=== PATIENT | female | born 1995 | race Caucasian/White ===

== ENCOUNTER 2022-04-30 12:42 | Emergency (ER) | payer MEDICARE ==
[~2022-04-30] VITALS: Ht 165.1 cm; Wt 76.9 kg
[2022-04-30] MEDS ORDERED: IBUPROFEN 800 MG TAB PO ONE (14:35)
[2022-04-30] MEDS ORDERED: ACETAMINOPHEN 325 MG TAB PO ONE (14:35)
[2022-04-30] MEDS ORDERED: CIPRODEX OTIC SUSP 7.5ML AD ONE (16:50)
[2022-04-30] MEDS ORDERED: KETOROLAC 30 MG/ML 1ML VIAL IM ONE (17:15)
[2022-04-30] MEDS ORDERED: CIPR7.5D5 OTIC (17:20)
[2022-04-30] MEDS ORDERED: KETO10TAB PO (17:21)
[2022-04-30 17:55] VITALS: BP 104/67
== END 2022-04-30 17:57 | disposition home or self-care (01) ==
LOC: M ED 12:42
DX: H66.91 Otitis media, unspecified, right ear (principal); Z88.8 Allergy status to other drugs, medicaments and biological substances; Z87.19 Personal history of other diseases of the digestive system
CPT/HCPCS: 96372; 99283; J1885

== ENCOUNTER 2023-06-05 05:25 | Emergency (ER) | payer MEDICARE ==
[~2023-06-05] VITALS: Ht 165.1 cm; Wt 72.7 kg
[~2023-06-05 05:25] MED LIST: CIPR7.5D5 OTIC; KETO10TAB PO
[2023-06-05 06:38] LABS: BASO # 0.1 10^3/uL (0.0-0.2); BASO % 0.5 % (0.0-1.0); EOS # 0.1 10^3/uL (0.0-0.5); EOS % 1.2 % (0.0-3.0); HEMATOCRIT 38.5 % (36.0-47.0); HEMOGLOBIN 12.5 g/dl (12.0-15.5); LYMPH # 4.9 10^3/uL (1.5-5.0); LYMPH % 45.7 % (24.0-44.0); MEAN CORPUSCULAR HEMOGLOBIN 27.9 pg (27.0-33.0); MEAN CORPUSCULAR HGB CONC 32.5 g/dl (32.0-36.5); MEAN CORPUSCULAR VOLUME 85.9 fl (80.0-96.0); MONO # 0.6 10^3/uL (0.0-0.8); MONO % 5.1 % (2.0-8.0); NEUTROPHILS # 5.1 10^3/uL (1.5-8.5); PLATELET COUNT, AUTOMATED 321 10^3/uL (150-450); RED BLOOD COUNT 4.48 10^6/uL (4.00-5.40); WHITE BLOOD COUNT 10.8 10^3/uL (4.0-10.0)
[2023-06-05 06:55] LABS: LIPASE 29 U/L (12-53)
[2023-06-05 06:57] LABS: ALBUMIN 3.6 G/DL (3.2-5.2); ALKALINE PHOSPHATASE 80 U/L (46-116); ALT/SGPT 17 U/L (7.0-40); AST/SGOT < 8 U/L (<34); BILIRUBIN,DIRECT 0.1 MG/DL (<0.4); BILIRUBIN,TOTAL 0.4 MG/DL (0.3-1.2); TOTAL PROTEIN 6.8 G/DL (5.7-8.2)
[2023-06-05 07:04] LABS: HCG, SERUM QUALITATIVE NEGATIVE (NEGATIVE)
[2023-06-05] MEDS ORDERED: NS 1,000 ML IV ONE (09:40)
[2023-06-05] MEDS ORDERED: KETOROLAC 30 MG/ML 1ML VIAL IV ONE (09:45)
[2023-06-05] MEDS ORDERED: ONDANSETRON 4MG 2ML VIAL IV ONE (09:45)
[2023-06-05] MEDS ORDERED: ISOVUE-370 76% 100ML VIAL As Ordered ONE (10:23)
[2023-06-05] MEDS ORDERED: MACR100C43 PO ×2 (11:23→11:36)
[2023-06-05 11:31] VITALS: BP 118/71; TEMP 96.5; O2SAT 97
== END 2023-06-05 11:36 | disposition home or self-care (01) ==
LOC: EDBD 05:25 → M ED 05:25
DX: N30.00 Acute cystitis without hematuria (principal); K57.30 Diverticulosis of large intestine without perforation or abscess without bleeding; G40.909 Epilepsy, unspecified, not intractable, without status epilepticus; Z79.899 Other long term (current) drug therapy; Z88.8 Allergy status to other drugs, medicaments and biological substances
CPT/HCPCS: 74177; 80047; 80076; 81001; 83690; 84703; 85025; 87088; 87186; 93005; 96361; 96374; 96375; 99284; J1885; J2405; Q9967

== ENCOUNTER 2023-07-08 21:47 | Emergency (ER) | payer OTHER, MEDICARE ==
[~2023-07-08] VITALS: Ht 165.1 cm; Wt 88.8 kg
[~2023-07-08 21:47] MED LIST changes: +MACR100C43 PO
[2023-07-08 21:48] VITALS: BP 124/78; TEMP 98.5; O2SAT 99
[2023-07-09] MEDS ORDERED: ALBUTEROL SULFATE 2.5MG/0.5ML INH NEB SOLN NEB ONE (00:35)
[2023-07-09] MEDS ORDERED: NEOSPORIN OINT 0.9 GM PKT TOP ONE (00:35)
[2023-07-09 01:22] LABS: RSV AMPLIFICATION NEGATIVE (NEGATIVE)
[2023-07-09] MEDS ORDERED: VENTAER INH (02:21)
== END 2023-07-09 02:33 | disposition home or self-care (01) ==
LOC: M ED 21:47
DX: T23.101A Burn of first degree of right hand, unspecified site, initial encounter (principal); Y99.0 Civilian activity done for income or pay; R05.9 Cough, unspecified; E66.9 Obesity, unspecified; Z88.8 Allergy status to other drugs, medicaments and biological substances; Z79.51 Long term (current) use of inhaled steroids

== ENCOUNTER 2023-07-15 06:30 | Emergency (ER) | payer MEDICARE, OTHER ==
[~2023-07-15] VITALS: Ht 165.1 cm; Wt 87.6 kg
[~2023-07-15 06:30] MED LIST changes: +VENTAER INH
[2023-07-15] MEDS ORDERED: NS 1,000 ML IV ONE (07:40)
[2023-07-15] MEDS ORDERED: ACETAMINOPHEN 500 MG TAB PO ONE (07:40)
[2023-07-15] MEDS ORDERED: ONDANSETRON 4MG 2ML VIAL IV ONE (07:40)
[2023-07-15 09:11] LABS: BASO % 0.3 % (0.0-1.0); EOS # 0.1 10^3/uL (0.0-0.5); EOS % 0.5 % (0.0-3.0); HEMATOCRIT 38.1 % (36.0-47.0); HEMOGLOBIN 12.5 g/dl (12.0-15.5); LYMPH # 1.8 10^3/uL (1.5-5.0); LYMPH % 14.1 % (24.0-44.0); MEAN CORPUSCULAR HEMOGLOBIN 27.6 pg (27.0-33.0); MEAN CORPUSCULAR HGB CONC 32.8 g/dl (32.0-36.5); MEAN CORPUSCULAR VOLUME 84.1 fl (80.0-96.0); MONO # 0.7 10^3/uL (0.0-0.8); MONO % 5.1 % (2.0-8.0); NEUTROPHILS # 10.2 10^3/uL (1.5-8.5); NEUTROPHILS % 79.6 % (36.0-66.0); PLATELET COUNT, AUTOMATED 286 10^3/uL (150-450); RED BLOOD COUNT 4.53 10^6/uL (4.00-5.40); WHITE BLOOD COUNT 12.8 10^3/uL (4.0-10.0)
[2023-07-15 09:30] LABS: LIPASE 33 U/L (12-53)
[2023-07-15 09:32] LABS: ALBUMIN 3.6 G/DL (3.2-5.2); ALKALINE PHOSPHATASE 79 U/L (46-116); ALT/SGPT 19 U/L (7.0-40); AST/SGOT < 8 U/L (<34); BILIRUBIN,DIRECT 0.1 MG/DL (<0.4); BILIRUBIN,TOTAL 0.4 MG/DL (0.3-1.2); BLOOD UREA NITROGEN 13 MG/DL (9-23); CALCIUM LEVEL 8.8 MG/DL (8.5-10.1); CARBON DIOXIDE LEVEL 24 MMOL/L (20-31); CHLORIDE LEVEL 101 MMOL/L (98-107); CREATININE FOR GFR 0.69 MG/DL (0.55-1.30); GLOMERULAR FILTRATION RATE > 60.0 (>60); GLUCOSE, FASTING 108 MG/DL (60-100); SODIUM LEVEL 136 MMOL/L (136-145); TOTAL PROTEIN 6.9 G/DL (5.7-8.2)
[2023-07-15 09:41] LABS: HCG, SERUM QUALITATIVE NEGATIVE (NEGATIVE)
[2023-07-15] MEDS ORDERED: ISOVUE-370 76% 100ML VIAL As Ordered ONE (10:06)
[2023-07-15 11:12] VITALS: BP 119/64; TEMP 98.1; O2SAT 99
[2023-07-15 12:06] LABS: RSV AMPLIFICATION NEGATIVE (NEGATIVE)
[2023-07-15] MEDS ORDERED: CIPR7.5D5 AD (12:23)
== END 2023-07-15 13:12 | disposition home or self-care (01) ==
LOC: M ED 06:30
DX: H60.91 Unspecified otitis externa, right ear (principal); K59.00 Constipation, unspecified; F41.9 Anxiety disorder, unspecified; F32.A Depression, unspecified; G40.909 Epilepsy, unspecified, not intractable, without status epilepticus; Z88.8 Allergy status to other drugs, medicaments and biological substances; Z91.048 Other nonmedicinal substance allergy status; Z79.52 Long term (current) use of systemic steroids; Z79.2 Long term (current) use of antibiotics
CPT/HCPCS: 74177; 80048; 80076; 81001; 83690; 84703; 85025; 87631; 96361; 96374; 99284; J2405; Q9967

== ENCOUNTER 2023-09-08 00:14 | Emergency (ER) | payer MEDICARE, MEDICAID ==
[~2023-09-08] VITALS: Ht 165.1 cm; Wt 84.6 kg
[~2023-09-08 00:14] MED LIST changes: +CIPR7.5D5 AD
[2023-09-08] MEDS ORDERED: KETOROLAC 30 MG/ML 1ML VIAL IV ONE (07:10)
[2023-09-08] MEDS ORDERED: diphenhydrAMINE 50MG/ML VIAL IV ONE (07:10)
[2023-09-08] MEDS ORDERED: METOCLOPRAMIDE INJ 10MG/2ML VIAL IV ONE (07:10)
[2023-09-08] MEDS ORDERED: NS 1,000 ML IV ONE (07:10)
[2023-09-08] MEDS ORDERED: ACETAMINOPHEN *IV* 1,000 MG in IV 1 EA IV ONE (08:45)
[2023-09-08 10:01] VITALS: BP 135/62; TEMP 98; O2SAT 100
== END 2023-09-08 10:42 | disposition home or self-care (01) ==
LOC: M ED 00:14
DX: G43.909 Migraine, unspecified, not intractable, without status migrainosus (principal); Z88.8 Allergy status to other drugs, medicaments and biological substances
CPT/HCPCS: 84702; 96361; 96365; 96375; 99284; J0131; J1100; J1200; J1885; J2765

== ENCOUNTER 2023-09-22 14:52 | Emergency (ER) | payer MEDICARE, MEDICAID ==
[~2023-09-22] VITALS: Ht 165.1 cm; Wt 81.6 kg
[2023-09-22 16:28] LABS: BASO % 0.5 % (0.0-1.0); EOS # 0.1 10^3/uL (0.0-0.5); EOS % 1.5 % (0.0-3.0); HEMATOCRIT 37.9 % (36.0-47.0); HEMOGLOBIN 12.5 g/dl (12.0-15.5); LYMPH # 2.8 10^3/uL (1.5-5.0); LYMPH % 35.6 % (24.0-44.0); MEAN CORPUSCULAR HEMOGLOBIN 28.5 pg (27.0-33.0); MEAN CORPUSCULAR VOLUME 86.5 fl (80.0-96.0); MONO # 0.5 10^3/uL (0.0-0.8); MONO % 6.6 % (2.0-8.0); NEUTROPHILS # 4.4 10^3/uL (1.5-8.5); NEUTROPHILS % 55.4 % (36.0-66.0); PLATELET COUNT, AUTOMATED 243 10^3/uL (150-450); RED BLOOD COUNT 4.38 10^6/uL (4.00-5.40); WHITE BLOOD COUNT 7.9 10^3/uL (4.0-10.0)
[2023-09-22 16:51] LABS: LIPASE 27 U/L (12-53)
[2023-09-22 16:52] LABS: HCG, SERUM QUALITATIVE NEGATIVE (NEGATIVE)
[2023-09-22 16:53] LABS: ALBUMIN 3.6 G/DL (3.2-5.2); ALKALINE PHOSPHATASE 66 U/L (46-116); ALT/SGPT 22 U/L (7.0-40); AST/SGOT 11 U/L (<34); BILIRUBIN,DIRECT 0.2 MG/DL (<0.4); BILIRUBIN,TOTAL 0.7 MG/DL (0.3-1.2); BLOOD UREA NITROGEN 13 MG/DL (9-23); CALCIUM LEVEL 8.6 MG/DL (8.5-10.1); CARBON DIOXIDE LEVEL 25 MMOL/L (20-31); CHLORIDE LEVEL 103 MMOL/L (98-107); GLOMERULAR FILTRATION RATE > 60.0 (>60); GLUCOSE, FASTING 87 MG/DL (60-100); POTASSIUM SERUM 3.7 MMOL/L (3.5-5.1); SODIUM LEVEL 139 MMOL/L (136-145); TOTAL PROTEIN 6.4 G/DL (5.7-8.2)
[2023-09-22] MEDS ORDERED: KETOROLAC 30 MG/ML 1ML VIAL IV ONE (16:55)
[2023-09-22] MEDS ORDERED: ISOVUE-370 76% 100ML VIAL As Ordered ONE (17:58)
[2023-09-22] MEDS ORDERED: metroNIDAZOLE (FLAGYL) 500MG TABLET PO ONE (19:30)
[2023-09-22] MEDS ORDERED: AUGMENTIN 875 MG TAB PO ONE (19:30)
[2023-09-22] MEDS ORDERED: AMOX875T PO (19:53)
[2023-09-22] MEDS ORDERED: METR-265 PO (19:53)
[2023-09-22 20:15] VITALS: BP 123/74
[2023-09-22 20:22] VITALS: TEMP 98.8; O2SAT 97
[2023-09-22] MEDS ORDERED: traMADol 50 MG TAB PO ONE (20:25)
[2023-09-22] MEDS ORDERED: TRAM50TA2 PO (20:26)
[2023-09-22] MEDS ORDERED: IBUP-1022 PO (20:26)
[2023-09-25] MEDS ORDERED: ONDA4TAB6 PO (22:23)
== END 2023-09-22 20:30 | disposition home or self-care (01) ==
LOC: M ED 14:52 → EDBD 14:52 → M ED 20:30
DX: I88.0 Nonspecific mesenteric lymphadenitis (principal); Z88.8 Allergy status to other drugs, medicaments and biological substances
CPT/HCPCS: 74177; 80048; 80076; 83690; 84703; 85025; 96374; 99285; J1885; Q9967

== ENCOUNTER → 2023-10-15 | Outpatient (CLI) | payer MEDICARE, MEDICAID ==
[~2023-10-15] MED LIST changes: +AMOX875T PO; +IBUP-1022 PO; +METR-265 PO; +ONDA4TAB6 PO; +PROA1AER2 IN; +TRAM50TA2 PO
== END ==
LOC: M EKG 10:26
PROVIDERS: ATTEND Surgery
DX: R10.31 Right lower quadrant pain (principal); I45.19 Other right bundle-branch block

== ENCOUNTER 2023-10-16 10:24 | Day surgery (SDC) | payer MEDICARE, MEDICAID ==
[~2023-10-16] VITALS: Ht 165.1 cm; Wt 80.2 kg
[~2023-10-16 10:24] MED LIST changes: +CelecoXIB 400 MG CAP PO ONE; +LR 1,000 ML IV SCH; +ceFAZolin SOD 2 GM in IV 1 EA IV ONE; +metroNIDAZOLE 500 MG in IV 1 EA IV ONE
[2023-10-16] MEDS ORDERED: LIDOCAINE 2% INJ 100 MG/5 ML SYRINGE As Ordered ONE (11:55)
[2023-10-16] MEDS ORDERED: ACETAMINOPHEN 1000MG 100ML IV BAG As Ordered ONE (11:55)
[2023-10-16] MEDS ORDERED: ONDANSETRON 4MG 2ML VIAL As Ordered ONE (11:55)
[2023-10-16] MEDS ORDERED: propofoL 200 MG/20 ML VIAL As Ordered ONE (11:55)
[2023-10-16] MEDS ORDERED: KETOROLAC 60MG 2ML VIAL As Ordered ONE (11:55)
[2023-10-16] MEDS ORDERED: fentaNYL 100 MCG/2 ML INJECTION As Ordered ONE (12:01)
[2023-10-16] MEDS ORDERED: MIDAZOLAM INJ 2MG/2ML VIAL As Ordered ONE (12:01)
[2023-10-16] MEDS ORDERED: SUGAMMADEX SODIUM 500 MG/5 ML VIAL (BRIDION) As Ordered ONE (12:02)
[2023-10-16] MEDS ORDERED: ROCURONIUM BROMIDE 50MG/5ML VIAL As Ordered ONE (12:02)
[2023-10-16] MEDS ORDERED: LIDOCAINE 2% 100MG/5ML SDV (FOR ANES.) As Ordered ONE (12:05)
[2023-10-16] MEDS ORDERED: GLYCOPYRROLATE INJ 0.2 MG/ML 2 ML VIAL As Ordered ONE (12:50)
[2023-10-16] MEDS ORDERED: oxyCODONE 5MG TAB PO PRN (13:15)
[2023-10-16] MEDS ORDERED: ONDANSETRON 4MG 2ML VIAL IV PRN (13:15)
[2023-10-16] MEDS ORDERED: HYDROMORPHONE HCL 0.5 MG/ 0.5 ML SYRINGE IV PRN (13:15)
[2023-10-16] MEDS ORDERED: LR 1,000 ML IV SCH (13:15)
[2023-10-16] MEDS ORDERED: fentaNYL 100 MCG/2 ML INJECTION IV PRN (13:15)
[2023-10-16] MEDS ORDERED: NORCO, ANEXSIA 5/325MG TABLET (HYDROcodone/ACETAMINOPHEN) PO PRN ×2 (14:20)
[2023-10-16 15:30] VITALS: BP 116/60; TEMP 97.5; O2SAT 98
[2023-10-16] MEDS ORDERED: KETOROLAC 30 MG/ML 1ML VIAL IV SCH (19:00)
== END 2023-10-16 15:35 | disposition home or self-care (01) ==
LOC: M SDC 10:24
PROVIDERS: ATTEND Surgery
DX: K35.80 Unspecified acute appendicitis (principal); Z86.69 Personal history of other diseases of the nervous system and sense organs; Z87.09 Personal history of other diseases of the respiratory system; Z88.8 Allergy status to other drugs, medicaments and biological substances
CPT/HCPCS: 44970; 81025; 88304; J0131; J0665; J1100; J1836; J1885; J2250; J2405; J3010

== ENCOUNTER 2023-10-20 13:20 | Emergency (ER) | payer MEDICARE, MEDICAID ==
[~2023-10-20] VITALS: Ht 165.1 cm; Wt 80.5 kg
[~2023-10-20 13:20] MED LIST changes: -CelecoXIB 400 MG CAP PO ONE; -LR 1,000 ML IV SCH; -ceFAZolin SOD 2 GM in IV 1 EA IV ONE; -metroNIDAZOLE 500 MG in IV 1 EA IV ONE
[2023-10-20 14:45] LABS: LIPASE 26 U/L (12-53)
[2023-10-20 14:47] LABS: ALKALINE PHOSPHATASE 81 U/L (46-116); ALT/SGPT 20 U/L (7.0-40); AST/SGOT 13 U/L (<34); BILIRUBIN,DIRECT 0.2 MG/DL (<0.4); BILIRUBIN,TOTAL 0.8 MG/DL (0.3-1.2); TOTAL PROTEIN 7.2 G/DL (5.7-8.2)
[2023-10-20 14:50] LABS: HCG, SERUM QUALITATIVE NEGATIVE (NEGATIVE)
[2023-10-20] MEDS ORDERED: ISOVUE-370 76% 100ML VIAL As Ordered ONE (14:59)
[2023-10-20 15:01] LABS: RSV AMPLIFICATION NEGATIVE (NEGATIVE)
[2023-10-20 15:05] LABS: BASO % 0.2 % (0.0-1.0); EOS # 0.1 10^3/uL (0.0-0.5); EOS % 1.1 % (0.0-3.0); HEMOGLOBIN 14.2 g/dl (12.0-15.5); LYMPH # 3.2 10^3/uL (1.5-5.0); LYMPH % 25.4 % (24.0-44.0); MEAN CORPUSCULAR HEMOGLOBIN 28.5 pg (27.0-33.0); MEAN CORPUSCULAR HGB CONC 33.8 g/dl (32.0-36.5); MEAN CORPUSCULAR VOLUME 84.3 fl (80.0-96.0); MONO # 0.6 10^3/uL (0.0-0.8); MONO % 4.8 % (2.0-8.0); NEUTROPHILS # 8.5 10^3/uL (1.5-8.5); NEUTROPHILS % 68.1 % (36.0-66.0); RED BLOOD COUNT 4.98 10^6/uL (4.00-5.40); WHITE BLOOD COUNT 12.5 10^3/uL (4.0-10.0)
[2023-10-20 16:01] LABS: PLATELET COUNT, AUTOMATED 243 10^3/uL (150-450)
[2023-10-20] MEDS ORDERED: PERCOCET 5MG/325MG TAB PO ONE (16:35)
[2023-10-20 18:15] VITALS: BP 121/70; TEMP 96.6; O2SAT 97
[2023-10-20] MEDS ORDERED: CEFD1CAP9 PO (18:15)
[2023-10-20] MEDS ORDERED: PERC5TAB12 PO (18:15)
[2023-10-20] MEDS ORDERED: CEFDINIR 300 MG CAP (OMNICEF) PO ONE (18:15)
== END 2023-10-20 18:30 | disposition home or self-care (01) ==
LOC: M ED 13:20 → EDBD 13:20 → M ED 18:30
DX: N39.0 Urinary tract infection, site not specified (principal); G89.18 Other acute postprocedural pain; Z88.8 Allergy status to other drugs, medicaments and biological substances; Z79.2 Long term (current) use of antibiotics; Z79.52 Long term (current) use of systemic steroids
CPT/HCPCS: 36415; 74177; 80047; 80076; 81001; 83605; 83690; 84703; 85025; 87040; 87086; 87631; 93041; 99285; Q9967

== ENCOUNTER 2023-10-27 16:12 | Emergency (ER) | payer MEDICARE, MEDICAID ==
[~2023-10-27] VITALS: Ht 165.1 cm; Wt 78.0 kg
[~2023-10-27 16:12] MED LIST changes: +CEFD1CAP9 PO; +PERC5TAB12 PO
[2023-10-27] MEDS ORDERED: HYDR-4571 (16:38)
[2023-10-27] MEDS ORDERED: ONDA4TAB6 (16:38)
[2023-10-27 17:51] LABS: BASO % 0.2 % (0.0-1.0); EOS # 0.1 10^3/uL (0.0-0.5); EOS % 0.8 % (0.0-3.0); HEMATOCRIT 46.4 % (36.0-47.0); HEMOGLOBIN 15.4 g/dl (12.0-15.5); LYMPH % 9.4 % (24.0-44.0); MEAN CORPUSCULAR HEMOGLOBIN 27.8 pg (27.0-33.0); MEAN CORPUSCULAR HGB CONC 33.2 g/dl (32.0-36.5); MEAN CORPUSCULAR VOLUME 83.8 fl (80.0-96.0); MONO # 0.5 10^3/uL (0.0-0.8); MONO % 4.9 % (2.0-8.0); NEUTROPHILS # 8.7 10^3/uL (1.5-8.5); NEUTROPHILS % 84.2 % (36.0-66.0); PLATELET COUNT, AUTOMATED 263 10^3/uL (150-450); RED BLOOD COUNT 5.54 10^6/uL (4.00-5.40); WHITE BLOOD COUNT 10.4 10^3/uL (4.0-10.0)
[2023-10-27 18:04] LABS: LIPASE 28 U/L (12-53)
[2023-10-27 18:06] LABS: ALBUMIN 3.9 G/DL (3.2-5.2); ALKALINE PHOSPHATASE 95 U/L (46-116); ALT/SGPT 16 U/L (7.0-40); AST/SGOT 14 U/L (<34); BILIRUBIN,DIRECT 0.2 MG/DL (<0.4); BILIRUBIN,TOTAL 0.7 MG/DL (0.3-1.2); BLOOD UREA NITROGEN 16 MG/DL (9-23); CALCIUM LEVEL 8.5 MG/DL (8.5-10.1); CARBON DIOXIDE LEVEL 20 MMOL/L (20-31); CHLORIDE LEVEL 107 MMOL/L (98-107); CREATININE FOR GFR 0.67 MG/DL (0.55-1.30); GLOMERULAR FILTRATION RATE > 60.0 (>60); GLUCOSE, FASTING 98 MG/DL (60-100); POTASSIUM SERUM 3.4 MMOL/L (3.5-5.1); SODIUM LEVEL 138 MMOL/L (136-145); TOTAL PROTEIN 7.4 G/DL (5.7-8.2)
[2023-10-27 18:07] LABS: HCG, SERUM QUALITATIVE NEGATIVE (NEGATIVE)
[2023-10-27] MEDS ORDERED: METOCLOPRAMIDE INJ 10MG/2ML VIAL IV ONE (21:15)
[2023-10-27] MEDS ORDERED: ACETAMINOPHEN *IV* 1,000 MG in IV 1 EA IV ONE (21:15)
[2023-10-27] MEDS ORDERED: NS 1,000 ML IV ONE (21:15)
[2023-10-27] MEDS ORDERED: ISOVUE-370 76% 100ML VIAL As Ordered ONE (21:18)
[2023-10-27 23:41] VITALS: BP 118/62; TEMP 98.9; O2SAT 97
[2023-10-28] MEDS ORDERED: PROM12.56 PO (00:43)
[2023-10-28 01:39] LABS: RSV AMPLIFICATION NEGATIVE (NEGATIVE)
== END 2023-10-28 01:23 | disposition home or self-care (01) ==
LOC: EDBD 16:12 → M ED 16:12
DX: R11.2 Nausea with vomiting, unspecified (principal); R19.7 Diarrhea, unspecified; J45.909 Unspecified asthma, uncomplicated; G40.909 Epilepsy, unspecified, not intractable, without status epilepticus; Z88.8 Allergy status to other drugs, medicaments and biological substances; Z79.52 Long term (current) use of systemic steroids; Z79.83 Long term (current) use of bisphosphonates; Z79.899 Other long term (current) drug therapy
CPT/HCPCS: 70450; 74177; 80048; 80076; 83690; 84703; 85025; 87631; 96365; 96375; 99284; J0131; J2765; Q9967

== ENCOUNTER 2024-05-22 13:44 | Emergency (ER) | payer MEDICARE, MEDICAID ==
[~2024-05-22] VITALS: Ht 165.1 cm; Wt 84.1 kg
[~2024-05-22 13:44] MED LIST changes: +HYDR-4571; +ONDA-282; +ONDA-282 PO; -ONDA4TAB6 PO; +PROM12.56 PO
[2024-05-22] MEDS ORDERED: MOME17SP NS (19:05)
[2024-05-22] MEDS ORDERED: LEVOTAB10 PO (19:05)
[2024-05-22 19:13] VITALS: BP 117/73; TEMP 97.8; O2SAT 100
== END 2024-05-22 19:19 | disposition home or self-care (01) ==
LOC: M ED 13:44
DX: J30.2 Other seasonal allergic rhinitis (principal); B34.9 Viral infection, unspecified; R56.9 Unspecified convulsions; D64.9 Anemia, unspecified; F41.9 Anxiety disorder, unspecified; F32.A Depression, unspecified; R00.9 Unspecified abnormalities of heart beat; Z79.899 Other long term (current) drug therapy; Z88.8 Allergy status to other drugs, medicaments and biological substances

== ENCOUNTER 2024-08-08 17:47 | Emergency (ER) | payer MEDICARE, MEDICAID ==
[~2024-08-08] VITALS: Ht 165.1 cm; Wt 87.1 kg
[~2024-08-08 17:47] MED LIST changes: +LEVOTAB10 PO; +MOME17SP NS
[2024-08-09] MEDS ORDERED: OLOP5DRO17 OP (01:04)
[2024-08-09] MEDS: OLOPATADINE 0.1% OPHTH SOL 5ML(PATANOL) OU ONE (01:21)
[2024-08-09 01:28] VITALS: BP 120/68; TEMP 98.8; O2SAT 98
== END 2024-08-09 01:32 | disposition home or self-care (01) ==
LOC: M ED 17:47
DX: B30.9 Viral conjunctivitis, unspecified (principal); F41.1 Generalized anxiety disorder; D50.9 Iron deficiency anemia, unspecified; F32.4 Major depressive disorder, single episode, in partial remission; G40.909 Epilepsy, unspecified, not intractable, without status epilepticus; Z88.8 Allergy status to other drugs, medicaments and biological substances

== ENCOUNTER → 2024-08-14 | Outpatient (REF) | payer MEDICARE, MEDICAID ==
[~2024-08-14] MED LIST changes: +OLOP5DRO17 OP
[2024-08-14 19:30] LABS: ALBUMIN 3.7 G/DL (3.2-5.2); ALKALINE PHOSPHATASE 84 U/L (46-116); ALT/SGPT 22 U/L (7.0-40); AST/SGOT 13 U/L (<34); BILIRUBIN,TOTAL 0.5 MG/DL (0.3-1.2); BLOOD UREA NITROGEN 13 MG/DL (9-23); CALCIUM LEVEL 8.9 MG/DL (8.5-10.1); CARBON DIOXIDE LEVEL 23 MMOL/L (20-31); CHLORIDE LEVEL 109 MMOL/L (98-107); CHOLESTEROL LEVEL 168 MG/DL (<200); CHOLESTEROL RISK RATIO 3.52 (<5); CREATININE FOR GFR 0.64 MG/DL (0.55-1.30); GLOMERULAR FILTRATION RATE > 60.0 (>60); GLUCOSE, FASTING 81 MG/DL (60-100); HDL CHOLESTEROL 47.7 MG/DL (>40); LDL CHOLESTEROL 98.9 MG/DL (<100); NON-HDL-C 120.3 MG/DL; POTASSIUM SERUM 4.1 MMOL/L (3.5-5.1); SODIUM LEVEL 141 MMOL/L (136-145); TOTAL PROTEIN 7.2 G/DL (5.7-8.2); TRIGLYCERIDES LEVEL 107 MG/DL (<150)
[2024-08-14 19:35] LABS: THYROID STIMULATING HORMONE 1.178 uIU/ML (0.55-4.78)
[2024-08-14 19:37] LABS: TOTAL 25(OH) VITAMIN D 21.6 NG/ML (20.0-100.0)
[2024-08-14 19:40] LABS: HEMOGLOBIN A1c 5.1 % (4.0-6.0)
== END ==
LOC: M LAB REF 17:12
PROVIDERS: ATTEND Physician Assistant
DX: E55.9 Vitamin D deficiency, unspecified (principal); Z79.899 Other long term (current) drug therapy; Z11.3 Encounter for screening for infections with a predominantly sexual mode of transmission; Z72.89 Other problems related to lifestyle

== ENCOUNTER → 2024-12-05 | Outpatient (CLI) | payer MEDICARE, MEDICAID | LOC: M PLAIMG 11:46 | PROVIDERS: ATTEND Nurse Practitioner Family | DX: G43.011 Migraine without aura, intractable, with status migrainosus (principal) ==

== ENCOUNTER 2025-02-13 11:06 | Emergency (ER) | payer MEDICARE, MEDICAID ==
[~2025-02-13] VITALS: Ht 165.1 cm; Wt 132.4 kg
[2025-02-13] MEDS ORDERED: TOPI25TA10 (11:31)
[2025-02-13] MEDS ORDERED: SUMA100T2 (11:31)
[2025-02-13] MEDS: GABAPENTIN 100 MG CAP PO ONE (12:53)
[2025-02-13 13:30] LABS: BLOOD UREA NITROGEN 16 MG/DL (9-23); CALCIUM LEVEL 8.9 MG/DL (8.5-10.1); CARBON DIOXIDE LEVEL 26 MMOL/L (20-31); CHLORIDE LEVEL 105 MMOL/L (98-107); CREATININE FOR GFR 0.59 MG/DL (0.55-1.30); GLOMERULAR FILTRATION RATE > 90.0 (>60); GLUCOSE, FASTING 122 MG/DL (60-100); POTASSIUM SERUM 3.7 MMOL/L (3.5-5.1); SODIUM LEVEL 139 MMOL/L (136-145)
[2025-02-13] MEDS ORDERED: GABA-1171 PO (14:15)
[2025-02-13 14:30] VITALS: BP 111/68; TEMP 98.2; O2SAT 97
== END 2025-02-13 14:40 | disposition home or self-care (01) ==
LOC: M ED 11:06
DX: R20.2 Paresthesia of skin (principal); F41.9 Anxiety disorder, unspecified; F32.A Depression, unspecified; R56.9 Unspecified convulsions; G43.909 Migraine, unspecified, not intractable, without status migrainosus; Z88.8 Allergy status to other drugs, medicaments and biological substances

== ENCOUNTER → 2025-02-17 | Outpatient (CLI) | payer MEDICARE, MEDICAID ==
[~2025-02-17] MED LIST changes: +GABA-1171 PO; +SUMA100T2; +TOPI-256
== END ==
LOC: M EKG 13:46
PROVIDERS: ATTEND Registered Nurse
DX: R42 Dizziness and giddiness (principal); R00.2 Palpitations

== ENCOUNTER → 2025-03-12 | Outpatient (CLI) | payer MEDICARE, MEDICAID | LOC: M CARPUL 13:35 | PROVIDERS: ATTEND Registered Nurse | DX: R07.9 Chest pain, unspecified (principal) ==

== ENCOUNTER 2025-05-25 20:28 | Emergency (ER) | payer MEDICARE, MEDICAID ==
[~2025-05-25] VITALS: Ht 165.1 cm; Wt 91.1 kg
[~2025-05-25 20:28] MED LIST changes: -IBUP-1022 PO; +IBUP600T42 PO
[2025-05-25] MEDS ORDERED: CIPR0.3S37 AS (23:45)
[2025-05-25] MEDS: ACETAMINOPHEN 500 MG TAB PO ONE (23:51)
[2025-05-25] MEDS: CIPROFLOXACIN HC OTIC SUSPENSION AS ONE (23:51)
[2025-05-26 00:08] VITALS: BP 116/70; TEMP 97.6; O2SAT 96
== END 2025-05-26 00:10 | disposition home or self-care (01) ==
LOC: M ED 20:28
DX: H60.92 Unspecified otitis externa, left ear (principal); J45.909 Unspecified asthma, uncomplicated; G43.909 Migraine, unspecified, not intractable, without status migrainosus; Z79.899 Other long term (current) drug therapy; Z88.8 Allergy status to other drugs, medicaments and biological substances